=== PATIENT | male | born 1975 ===

== ENCOUNTER 2020-12-05 13:13 | Emergency (ER) | payer SELFPAY ==
[~2020-12-05] VITALS: Ht 165.1 cm; Wt 79.5 kg
[2020-12-05 14:09] LABS: BASO # 0.1 (0.0-0.2); BASO % 0.5 % (0.0-2.0); EOS # 0.3 (0.0-0.7); EOS % 2.8 % (0-4.0); GRAN # 6.9 (1.4-6.5); GRAN % 71.2 % (42.2-75.2); HEMATOCRIT 43.3 % (42.0-52.0); HEMOGLOBIN 15.2 g/dl (13.5-18.0); LYMPH # 1.9 (1.2-3.4); LYMPH % 19.4 % (20.0-51.0); MEAN CELL VOLUME 85 fl (80.0-100.0); MEAN CORPUSCULAR HEMOGLOBIN 30 pg (27.0-31.0); MEAN CORPUSCULAR HGB CONC 35 g/dl (33.0-37.0); MEAN PLATELET VOLUME 11.5 fl (7.4-10.4); MONO # 0.6 (0.1-0.6); MONO % 5.7 % (1.7-9.3); PLATELET COUNT 204 K/mm3 (130-400); RED BLOOD COUNT 5.08 M/mm3 (4.20-5.60); REDCELL DISTRIBUTION WIDTH-CV 12.3 % (11.5-14.5)
[2020-12-05 14:58] LABS: ALBUMIN 3.9 gm/dL (3.5-5.0); BILIRUBIN,TOTAL 0.6 mg/dL (0.0-1.0); CALCIUM 8.9 mg/dL (8.4-10.2); CARBON DIOXIDE 23 mmol/L (22-30); CHLORIDE 100 mmol/L (98-107); CREATININE, serum 0.62 (0.66-1.25); SODIUM 133 mmol/L (137-145); TOTAL PROTEIN 6.8 gm/dL (6.4-8.2)
[2020-12-05 15:21] LABS: GLUCOSE 501 mg/dL (74-106)
[2020-12-05] MEDS ORDERED: GLUCOPHAGE500 MG/TAB PO (15:33)
[2020-12-05 15:52] LABS: ANION GAP 10 mmol/L (7-16)
[2020-12-05 16:35] VITALS: BP 150/87; PULSE 69
== END 2020-12-05 16:35 | disposition home or self-care (01) ==
LOC: COL.ER 13:13
PROVIDERS: Emergency Medicine; Physician Assistant
DX: R73.9 Hyperglycemia, unspecified (principal); M54.16 Radiculopathy, lumbar region; F17.200 Nicotine dependence, unspecified, uncomplicated
CPT/HCPCS: J1885; J2360